=== PATIENT | female | born 1960 | race African-American/Black ===

== ENCOUNTER 2018-02-20 20:56 | Inpatient (IN) | payer MEDICAID ==
[~2018-02-20] VITALS: Ht 167.6 cm; Wt 81.8 kg
--- NOTE | ~2018-02-20 | MORECARE ---
CASE MANAGEMENT DISCHARGE SUMMARY PATIENT: BRITTANY CAMPUZANO UNIT: [id number] ADM DATE: 02/20/18 AGE: 57 : 62 SEX: F ROOM/BED: D.2240 AUTHOR: [place] PHYSICIAN: REFERRING PHYSICIAN: ARMANI MARCELO MD DATE OF SERVICE: 02/22/18 Discharge Plan Patient Name: BRITTANY CAMPUZANO Facility: [facility]:[place] : 1960 Planned Disposition: Home Anticipated Discharge Date: 02/22/18 Discharge Date: Expected LOS: 2 Initial Reviewer: [email or web address] Initial Review Date: 02/22/2018 Generated: 02/22/18 3:47 pm Comments DCP- Discharge Planning Updated by [email or web address]: Ivon Min on 02/22/18 1:[address] Patient Name: BRITTANY CAMPUZANO Admission Status: ER Accout number: [id number] Admission Date: 02-20-2018 : 1960 Admission Diagnosis: Attending: ARMANI MARCELO Current LOS: 2 Anticipated DC Date: 02-22-2018 Planned Disposition: Home Primary Insurance: MEDICAID [place] PENDING Discharge Planning Comments: CM met with patient to discuss discharge planning, her son is in the room. I received verbal permission to discuss discharge planning with son in the room. She lives with her fianc?e. She is independent with all ADL's and IADL's. I discussed availability of DME. She does not have any DME and denies need. She declines need for HHS. No needs identified. Her son will take her home on discharge. CM will continue to follow and assist with discharge planning/needs. Spinning Supervisor: Ivon Min DCPIA - Discharge Planning Initial Assessment Updated by [email or web address]: Ivon Min on 02/22/18 2:43 pm * Is the patient Alert and Oriented? Yes * How many steps to enter\exit or inside your home? 0/3 * PCP None * Pharmacy [facility] * Preadmission Environment Home with Family * ADLs Independent * Equipment None * List name and contact numbers for known caregivers / representatives who currently or will assist patient after discharge: Alon camacho - [phone] * Verbal permission to speak to the caregivers and representatives has been obtained from the patient. Yes * Community resources currently utilized None * Additional services required to return to the preadmission environment? No * Can the patient safely return to the preadmission environment? Yes * Has this patient been hospitalized within the prior 30 days at any hospital? No Patient Name: BRITTANY CAMPUZANO Page [id number] at 1447 All edits/amendments must be made on the electronic document DICTATION DATE: 02/22/181446 ASSISTANT PRODUCTION MANAGER: LISA 02/22/181446 RPT#: [id number] DC DATE: STATUS: ADM [address] [place] [address] END OF REPORT
[2018-02-20 21:51] LABS: BASOPHILS 0.3 % (0-2); EOSINOPHILS 5.3 % (0-7); HEMATOCRIT 41.8 % (36.0-48.0); IMMATURE GRANULOCYTES 0.1 % (0-5); LYMPHOCYTES 46.3 % (15-50); MCH 28.2 pg (26.0-34.0); MCHC 33.5 g/dL (31.0-37.0); MCV 84.1 fL (80.0-100.0); MEAN PLATELET VOLUME 10.3 fL (7.4-10.4); MONOCYTES 5.3 % (2-11); NEUTROPHILS 42.7 % (40-80); PLATELET COUNT 269 10x3/uL (130-400); RBC 4.97 10x6/uL (4.00-5.40); RDW 14.9 % (11.5-14.5); WBC 6.8 10x3/uL (4.8-10.8)
[2018-02-20 22:18] LABS: ALBUMIN 3.2 g/dL (3.4-5.0); ANION GAP 10.5 mmol/L (8-16); BILIRUBIN - TOTAL 0.21 mg/dL (0.2-1.3); CALCIUM 8.7 mg/dL (8.5-10.1); CARBON DIOXIDE 27.3 mmol/L (21.0-32.0); CREATININE - SERUM 1.2 mg/dL (0.6-1.3); POTASSIUM - SERUM 3.8 mmol/L (3.5-5.1); PROTEIN - SERUM 7.5 g/dL (6.4-8.2)
[2018-02-21 00:36] VITALS: BP 156/82; BMI 29.1
[2018-02-21 05:06] LABS: BASOPHILS 0 % (0-2); EOSINOPHILS 0 % (0-7); HEMATOCRIT 42.7 % (36.0-48.0); HEMOGLOBIN 14.3 g/dL (12-16); IMMATURE GRANULOCYTES 0.3 % (0-5); LYMPHOCYTES 12.4 % (15-50); MCH 28.1 pg (26.0-34.0); MCHC 33.5 g/dL (31.0-37.0); MCV 83.9 fL (80.0-100.0); MEAN PLATELET VOLUME 10.7 fL (7.4-10.4); MONOCYTES 0.5 % (2-11); NEUTROPHILS 86.8 % (40-80); PLATELET COUNT 284 10x3/uL (130-400); RBC 5.09 10x6/uL (4.00-5.40); RDW 14.9 % (11.5-14.5); WBC 6.4 10x3/uL (4.8-10.8)
[2018-02-21 05:28] LABS: ALBUMIN 3.2 g/dL (3.4-5.0); ALKALINE PHOSPHATASE 114 U/L (46-116); ALT (SGPT) 22 U/L (10-68); CALCIUM 8.5 mg/dL (8.5-10.1); CARBON DIOXIDE 25.3 mmol/L (21.0-32.0); CHLORIDE - SERUM 105 mmol/L (98-107); PROTEIN - SERUM 7.5 g/dL (6.4-8.2); SODIUM 142 mmol/L (136-145); UREA NITROGEN 15 mg/dL (7-18)
[2018-02-21 05:38] LABS: CALC OSMOLALITY 287 mosm/kg (275-300); CREATININE - SERUM 0.8 mg/dL (0.6-1.3); GLUCOSE 164 mg/dL (74-106); eGFR NON AFRICAN AMERICAN 78 mL/min (90-120)
[2018-02-21 06:57] VITALS: BP 143/67
[2018-02-21 09:08] VITALS: BP 135/75
[2018-02-21 12:13] VITALS: BP 126/64
[2018-02-21 17:07] VITALS: BP 128/67
[2018-02-21 20:45] VITALS: BP 136/76
[2018-02-22 04:49] VITALS: BP 121/55
[2018-02-22 06:25] LABS: BASOPHILS 0 % (0-2); EOSINOPHILS 0 % (0-7); HEMATOCRIT 40.2 % (36.0-48.0); HEMOGLOBIN 13.8 g/dL (12-16); IMMATURE GRANULOCYTES 0.1 % (0-5); LYMPHOCYTES 9.3 % (15-50); MCH 28.2 pg (26.0-34.0); MCHC 34.3 g/dL (31.0-37.0); MCV 82.2 fL (80.0-100.0); MEAN PLATELET VOLUME 10.3 fL (7.4-10.4); MONOCYTES 3.6 % (2-11); PLATELET COUNT 269 10x3/uL (130-400); RBC 4.89 10x6/uL (4.00-5.40); RDW 14.8 % (11.5-14.5)
[2018-02-22 06:26] LABS: WBC 13.5 10x3/uL (4.8-10.8)
[2018-02-22 06:37] LABS: CALC OSMOLALITY 287 mosm/kg (275-300); CALCIUM 8.6 mg/dL (8.5-10.1); CARBON DIOXIDE 23.9 mmol/L (21.0-32.0); CHLORIDE - SERUM 108 mmol/L (98-107); CREATININE - SERUM 0.7 mg/dL (0.6-1.3); GLUCOSE 146 mg/dL (74-106); POTASSIUM - SERUM 3.6 mmol/L (3.5-5.1); SODIUM 143 mmol/L (136-145); UREA NITROGEN 13 mg/dL (7-18); eGFR NON AFRICAN AMERICAN > 90 mL/min (90-120)
[2018-02-22 08:33] VITALS: BP 138/69
[2018-02-22 11:24] VITALS: Ht 167.6 cm; Wt 81.8 kg
[2018-02-22] MEDS ORDERED: KEFLEX500 MG PO (14:48)
== END 2018-02-22 16:59 | disposition home or self-care (01) | DRG 596 ==
LOC: D.ER 20:56 → D.MS 21:36
PROVIDERS: Family Medicine; Internal Medicine Nephrology
DX: B02.9 Zoster without complications (principal); L03.113 Cellulitis of right upper limb; L25.9 Unspecified contact dermatitis, unspecified cause

== ENCOUNTER 2018-03-03 12:27 | Emergency (ER) | payer MEDICAID ==
[~2018-03-03] VITALS: Ht 167.6 cm; Wt 81.8 kg
[~2018-03-03 12:27] MED LIST: KEFLEX500 MG PO
[2018-03-03 12:35] VITALS: Ht 167.6 cm; Wt 81.8 kg
[2018-03-03 13:52] LABS: BASOPHILS 0.3 % (0-2); EOSINOPHILS 2.7 % (0-7); HEMATOCRIT 44.5 % (36.0-48.0); HEMOGLOBIN 15.1 g/dL (12-16); IMMATURE GRANULOCYTES 0.6 % (0-5); LYMPHOCYTES 30.4 % (15-50); MCH 28.3 pg (26.0-34.0); MCHC 33.9 g/dL (31.0-37.0); MCV 83.3 fL (80.0-100.0); MEAN PLATELET VOLUME 10.5 fL (7.4-10.4); MONOCYTES 5.6 % (2-11); NEUTROPHILS 60.4 % (40-80); PLATELET COUNT 294 10x3/uL (130-400); RBC 5.34 10x6/uL (4.00-5.40); RDW 15.4 % (11.5-14.5); WBC 7.7 10x3/uL (4.8-10.8)
[2018-03-03 14:07] LABS: ALBUMIN 3.6 g/dL (3.4-5.0); ALKALINE PHOSPHATASE 122 U/L (46-116); ALT (SGPT) 25 U/L (10-68); BILIRUBIN - TOTAL 0.35 mg/dL (0.2-1.3); CALC OSMOLALITY 279 mosm/kg (275-300); CALCIUM 8.8 mg/dL (8.5-10.1); CARBON DIOXIDE 28.4 mmol/L (21.0-32.0); CHLORIDE - SERUM 103 mmol/L (98-107); CREATININE - SERUM 0.8 mg/dL (0.6-1.3); POTASSIUM - SERUM 3.7 mmol/L (3.5-5.1); PROTEIN - SERUM 7.6 g/dL (6.4-8.2); SODIUM 141 mmol/L (136-145); UREA NITROGEN 12 mg/dL (7-18); eGFR NON AFRICAN AMERICAN 78 mL/min (90-120)
[2018-03-03 14:08] LABS: GLUCOSE 89 mg/dL (74-106)
[2018-03-03] MEDS ORDERED: BACTRIM DS1 TAB PO (14:44)
[2018-03-03 14:50] VITALS: BP 128/80
== END 2018-03-03 14:50 | disposition home or self-care (01) ==
LOC: D.ER 12:27
PROVIDERS: Family Medicine
DX: L03.114 Cellulitis of left upper limb (principal)

== ENCOUNTER 2019-04-18 17:33 | Emergency (ER) | payer OTHER ==
[~2019-04-18 17:33] MED LIST changes: +BACTRIM DS1 TAB PO
[2019-04-18 17:40] VITALS: Ht 167.6 cm
[2019-04-18] MEDS ORDERED: TAMIFLU75 MG PO (19:19)
[2019-04-18 19:32] VITALS: BP 148/94
== END 2019-04-18 19:32 | disposition home or self-care (01) ==
LOC: D.ER 17:33
DX: J09.X2 Influenza due to identified novel influenza A virus with other respiratory manifestations (principal)

== ENCOUNTER 2019-07-30 14:13 | Emergency (ER) | payer OTHER ==
[~2019-07-30] VITALS: Ht 167.6 cm; Wt 77.3 kg
[~2019-07-30 14:13] MED LIST changes: +TAMIFLU75 MG PO
[2019-07-30 14:14] VITALS: Ht 167.6 cm; Wt 77.3 kg
[2019-07-30] MEDS ORDERED: VOLTAREN75 MG PO (15:45)
[2019-07-30] MEDS ORDERED: BACLOFEN20 M1 PO (15:45)
[2019-07-30 16:16] VITALS: BP 179/94
== END 2019-07-30 16:19 | disposition home or self-care (01) ==
LOC: D.ER 14:13
DX: T14.8XXA Other injury of unspecified body region, initial encounter (principal); M79.18 Myalgia, other site; M54.9 Dorsalgia, unspecified; V89.2XXA Person injured in unspecified motor-vehicle accident, traffic, initial encounter; Y93.9 Activity, unspecified; Y92.9 Unspecified place or not applicable

== ENCOUNTER 2019-08-12 07:06 | Emergency (ER) | payer OTHER ==
[~2019-08-12] VITALS: Ht 167.6 cm; Wt 79.5 kg
[~2019-08-12 07:06] MED LIST changes: +BACLOFEN20 M1 PO; +VOLTAREN75 MG PO
[2019-08-12 07:13] VITALS: Ht 167.6 cm; Wt 79.5 kg
[2019-08-12] MEDS ORDERED: SKELAXIN800 MG PO (07:43)
[2019-08-12] MEDS ORDERED: ACETAMINOPHEN500 M1 PO (07:43)
[2019-08-12] MEDS ORDERED: IBUPROFEN800 MG PO (07:43)
[2019-08-12] MEDS ORDERED: ULTRAM50 MG PO (07:43)
[2019-08-12 08:45] VITALS: BP 150/78
== END 2019-08-12 08:47 | disposition home or self-care (01) ==
LOC: D.ER 07:06
DX: S46.002A Unspecified injury of muscle(s) and tendon(s) of the rotator cuff of left shoulder, initial encounter (principal); M79.602 Pain in left arm; V89.2XXA Person injured in unspecified motor-vehicle accident, traffic, initial encounter; Y93.9 Activity, unspecified; Y92.9 Unspecified place or not applicable